=== PATIENT | male | born 1940 | race Caucasian/White ===

== ENCOUNTER 2021-09-01 09:06 | Inpatient (IN) ==
[2021-09-01] MEDS ORDERED: PANTOPRAZOLE INJ 80 MG in SODIUM CHLORIDE 0.9% 100 ML IV STA (10:17)
[2021-09-01] MEDS ORDERED: SODIUM CHLORIDE 0.9% 1,000 ML IV STA (10:17)
[2021-09-01 10:47] LABS: Basophils % 0.3 % (0.0-0.8); Hematocrit 44.5 VOL% (42.0-52.0); Hemoglobin 15.2 GM/DL (14.0-18.0); Immature Granulocytes % 6.6 %; Immature Granulocytes Absolute 0.45 #; Lymphocytes # 0.3 10*3/uL (1.4-4.0); Mean Corpuscular HGB Conc 34.2 GM/DL (32-36); Mean Corpuscular Volume 99.3 FL (87-102); Mean Platelet Volume 11.5 FL (9.6-12.0); Monocytes % 18.9 % (1.7-12.7); Neutrophils % 70.2 % (38.7-73.9); Red Blood Count 4.48 MC/CUMM (3.8-5.5); Red Cell Distribution Width 14.8 % (9.3-17.3); White Blood Count 6.8 T/CUMM (4-12)
[2021-09-01 10:49] LABS: Platelet Count 119 T/CUMM (130-400)
[2021-09-01 10:59] LABS: INR 1.2; PT Patient Result 13.3 SECS (10.5-12.0)
[2021-09-01 11:12] LABS: Bilirubin,Total 1.4 MG/DL (0.20-1.00); Calcium 8.7 MG/DL (8.5-10.1); Osmolality,Calculated 295.4 MOS/KG (273-304); Potassium 4.1 MMOL/L (3.5-5.1); Total Protein 5.9 G/DL (6.4-8.2)
[2021-09-01 11:26] LABS: Anisocytosis 1+; Band Neutrophils 23 % (0-10); Lymphocytes 1 % (20-55); Platelet Estimate Adequate; Segmented Neutrophils 55 % (50-85); Total Cells Counted 100
[2021-09-01 11:27] LABS: Burr Cells Few; Macrocytosis 1+
[2021-09-01] MEDS ORDERED: cefTRIAXone 1,000 MG in SODIUM CHLORIDE 0.9% 100 ML IV STA (11:55)
[2021-09-01] MEDS ORDERED: AZITHROMYCIN INJ 500 MG in SODIUM CHLORIDE 0.9% 250 ML IV STA (11:56)
[2021-09-01] MEDS ORDERED: DEXTROSE 10% 25 GM/250 ML BAG IV PRN (12:42)
[2021-09-01] MEDS ORDERED: ACETAMINOPHEN 325 MG TABLET PO PRN (12:42)
[2021-09-01] MEDS ORDERED: ONDANSETRON 4 MG/2 ML VIAL IV PRN (12:42)
[2021-09-01] MEDS ORDERED: GLUCAGON 1 MG VIAL IM PRN (12:42)
[2021-09-01 13:44] LABS: Ferritin 1402.4 ng/mL (26-388)
[2021-09-01] MEDS ORDERED: REMDESIVIR 200 MG in SODIUM CHLORIDE 0.9% 210 ML IV ONE (13:45)
[2021-09-01] MEDS: DEXAMETHASONE 4 MG/1 ML VIAL IV SCH (14:25)
[2021-09-01] MEDS: SODIUM CHLORIDE 0.9% 1,000 ML IV SCH (14:25)
[2021-09-01] MEDS: PANTOPRAZOLE INJ 200 MG in SODIUM CHLORIDE 0.9% 250 ML IV SCH (14:26)
[2021-09-01] MEDS ORDERED: hydrALAZINE 20 MG/1 ML VIAL IV PRN (15:28)
[2021-09-01] MEDS: guaiFENesin/DM ER 600-30 MG TABLET PO SCH (21:56)
[2021-09-01] MEDS: ASCORBIC ACID 500 MG TABLET PO SCH (21:56)
[2021-09-01 23:17] LABS: Hematocrit 29.1 VOL% (42.0-52.0)
[2021-09-01 23:24] LABS: Hemoglobin 9.4 GM/DL (14.0-18.0)
[2021-09-02] MEDS: SODIUM CHLORIDE 0.9% 1,000 ML IV SCH ×2 (02:47→16:26)
[2021-09-02 05:56] LABS: Hemoglobin 9.3 GM/DL (14.0-18.0)
[2021-09-02 05:59] LABS: Basophils % 0.3 % (0.0-0.8); Hematocrit 29.3 VOL% (42.0-52.0); Hemoglobin 9.6 GM/DL (14.0-18.0); Immature Granulocytes % 8.7 %; Immature Granulocytes Absolute 0.67 #; Lymphocytes # 0.4 10*3/uL (1.4-4.0); Lymphocytes % 5.6 % (21.2-54.2); Mean Corpuscular HGB Conc 32.8 GM/DL (32-36); Mean Corpuscular Volume 103.2 FL (87-102); Mean Platelet Volume 12.1 FL (9.6-12.0); Monocytes % 12.2 % (1.7-12.7); Neutrophils % 73.2 % (38.7-73.9); Platelet Count 150 T/CUMM (130-400); Red Blood Count 2.84 MC/CUMM (3.8-5.5); Red Cell Distribution Width 14.6 % (9.3-17.3); White Blood Count 7.7 T/CUMM (4-12)
[2021-09-02 06:23] LABS: Band Neutrophils 1 % (0-10); Hypochromia 1+; Lymphocytes 3 % (20-55); Microcytosis 1+; Nucleated Red Blood Cells 1 (0-5); Platelet Estimate Adequate; Segmented Neutrophils 77 % (50-85); Total Cells Counted 100
[2021-09-02 06:30] LABS: Ferritin 1275.8 ng/mL (26-388)
[2021-09-02 06:33] LABS: Albumin 1.7 G/DL (3.4-5.0); Bilirubin,Total 0.6 MG/DL (0.20-1.00); Calcium 8.1 MG/DL (8.5-10.1); Osmolality,Calculated 292.4 MOS/KG (273-304); Potassium 4.2 MMOL/L (3.5-5.1); Total Protein 5.1 G/DL (6.4-8.2)
[2021-09-02] MEDS: PANTOPRAZOLE INJ 200 MG in SODIUM CHLORIDE 0.9% 250 ML IV SCH (10:39)
[2021-09-02] MEDS: AZITHROMYCIN 250 MG TABLET PO SCH (10:40)
[2021-09-02] MEDS: ZINC GLUCONATE 50 MG TABLET PO SCH (10:40)
[2021-09-02] MEDS: CETIRIZINE 10 MG TABLET PO SCH (10:40)
[2021-09-02] MEDS: guaiFENesin/DM ER 600-30 MG TABLET PO SCH ×2 (10:40→21:34)
[2021-09-02] MEDS: ASCORBIC ACID 500 MG TABLET PO SCH ×2 (10:40→21:33)
[2021-09-02] MEDS: CHOLECALCIFEROL 1,000 UNIT TABLET PO SCH (10:40)
[2021-09-02] MEDS: DEXAMETHASONE 4 MG/1 ML VIAL IV SCH (10:42)
[2021-09-02] MEDS: REMDESIVIR 100 MG in SODIUM CHLORIDE 0.9% 100 ML IV SCH (11:31)
[2021-09-02] MEDS: ZALEPLON 5 MG CAPSULE PO SCH (21:34)
[2021-09-02] MEDS: PANTOPRAZOLE 40 MG VIAL IV SCH (21:37)
[2021-09-02] MEDS: carvediloL 12.5 MG TABLET PO SCH (22:17)
[2021-09-03] MEDS: SODIUM CHLORIDE 0.9% 1,000 ML IV SCH ×2 (04:01→17:41)
[2021-09-03 07:26] LABS: Ferritin 1171.5 ng/mL (26-388)
[2021-09-03] MEDS: CYANOCOBALAMIN 100 MCG TABLET PO SCH (10:16)
[2021-09-03] MEDS: AZITHROMYCIN 250 MG TABLET PO SCH (10:16)
[2021-09-03] MEDS: VALSARTAN 160 MG TABLET PO SCH (10:16)
[2021-09-03] MEDS: TAMSULOSIN 0.4 MG CAPSULE PO SCH (10:16)
[2021-09-03] MEDS: allopurinoL 300 MG TABLET PO SCH (10:16)
[2021-09-03] MEDS: guaiFENesin/DM ER 600-30 MG TABLET PO SCH ×2 (10:16→21:35)
[2021-09-03] MEDS: CHOLECALCIFEROL 1,000 UNIT TABLET PO SCH (10:16)
[2021-09-03] MEDS: CETIRIZINE 10 MG TABLET PO SCH (10:17)
[2021-09-03] MEDS: ASCORBIC ACID 500 MG TABLET PO SCH ×2 (10:17→21:35)
[2021-09-03] MEDS: SPIRONOLACTONE 50 MG TABLET PO SCH (10:17)
[2021-09-03] MEDS: MAGNESIUM CHLORIDE 64 MG TABLET PO SCH (10:17)
[2021-09-03] MEDS: carvediloL 12.5 MG TABLET PO SCH ×2 (10:17→21:35)
[2021-09-03] MEDS: ZINC GLUCONATE 50 MG TABLET PO SCH (10:18)
[2021-09-03] MEDS: REMDESIVIR 100 MG in SODIUM CHLORIDE 0.9% 100 ML IV SCH (10:27)
[2021-09-03] MEDS: DEXAMETHASONE 4 MG/1 ML VIAL IV SCH (10:32)
[2021-09-03] MEDS: PANTOPRAZOLE 40 MG VIAL IV SCH ×2 (10:32→21:42)
[2021-09-03] MEDS: ATORVASTATIN 40 MG TABLET PO SCH (21:35)
[2021-09-03] MEDS: ZALEPLON 5 MG CAPSULE PO SCH (21:35)
[2021-09-04 05:41] LABS: Basophils % 0.1 % (0.0-0.8); Eosinophils % 0.1 % (0.00-10.9); Hematocrit 28.7 VOL% (42.0-52.0); Hemoglobin 9.2 GM/DL (14.0-18.0); Immature Granulocytes % 7.4 %; Immature Granulocytes Absolute 0.78 #; Lymphocytes # 0.6 10*3/uL (1.4-4.0); Lymphocytes % 5.7 % (21.2-54.2); Mean Corpuscular HGB Conc 32.1 GM/DL (32-36); Mean Corpuscular Volume 101.1 FL (87-102); Mean Platelet Volume 11.6 FL (9.6-12.0); Monocytes % 11.9 % (1.7-12.7); Neutrophils % 74.8 % (38.7-73.9); Platelet Count 150 T/CUMM (130-400); Red Blood Count 2.84 MC/CUMM (3.8-5.5); Red Cell Distribution Width 14.8 % (9.3-17.3); White Blood Count 10.6 T/CUMM (4-12)
[2021-09-04 06:02] LABS: Band Neutrophils 1 % (0-10); Hypochromia 1+; Lymphocytes 6 % (20-55); Microcytosis 1+; Platelet Estimate Adequate; Segmented Neutrophils 80 % (50-85); Total Cells Counted 100
[2021-09-04 06:03] LABS: Calcium 7.7 MG/DL (8.5-10.1); Osmolality,Calculated 292.8 MOS/KG (273-304); Potassium 4.2 MMOL/L (3.5-5.1)
[2021-09-04 06:08] LABS: Ferritin 930.1 ng/mL (26-388)
[2021-09-04] MEDS: SODIUM CHLORIDE 0.9% 1,000 ML IV SCH ×2 (06:30→22:15)
[2021-09-04] MEDS: guaiFENesin/DM ER 600-30 MG TABLET PO SCH ×2 (08:44→22:32)
[2021-09-04] MEDS: CHOLECALCIFEROL 1,000 UNIT TABLET PO SCH (08:45)
[2021-09-04] MEDS: allopurinoL 300 MG TABLET PO SCH (08:45)
[2021-09-04] MEDS: TAMSULOSIN 0.4 MG CAPSULE PO SCH (08:45)
[2021-09-04] MEDS: AZITHROMYCIN 250 MG TABLET PO SCH (08:45)
[2021-09-04] MEDS: ZINC GLUCONATE 50 MG TABLET PO SCH (08:45)
[2021-09-04] MEDS: VALSARTAN 160 MG TABLET PO SCH (08:45)
[2021-09-04] MEDS: CYANOCOBALAMIN 100 MCG TABLET PO SCH (08:45)
[2021-09-04] MEDS: SPIRONOLACTONE 50 MG TABLET PO SCH (08:45)
[2021-09-04] MEDS: ASCORBIC ACID 500 MG TABLET PO SCH ×2 (08:45→22:42)
[2021-09-04] MEDS: CETIRIZINE 10 MG TABLET PO SCH (08:45)
[2021-09-04] MEDS: carvediloL 12.5 MG TABLET PO SCH ×2 (08:45→22:32)
[2021-09-04] MEDS: MAGNESIUM CHLORIDE 64 MG TABLET PO SCH (08:45)
[2021-09-04] MEDS: REMDESIVIR 100 MG in SODIUM CHLORIDE 0.9% 100 ML IV SCH (08:46)
[2021-09-04] MEDS: PANTOPRAZOLE 40 MG VIAL IV SCH ×2 (08:46→22:35)
[2021-09-04] MEDS: DEXAMETHASONE 4 MG/1 ML VIAL IV SCH (08:46)
[2021-09-04] MEDS: POLYETHYLENE GLYCOL POWDER 17 GM PACK PO SCH (15:05)
[2021-09-04] MEDS: BACITRACIN OINT 0.9 GM PACK TOP SCH (15:05)
[2021-09-04] MEDS: ATORVASTATIN 40 MG TABLET PO SCH (22:32)
[2021-09-04] MEDS: ZALEPLON 5 MG CAPSULE PO SCH (22:32)
[2021-09-05 06:09] LABS: Basophils % 0.2 % (0.0-0.8); Eosinophils % 0.2 % (0.00-10.9); Hematocrit 29.6 VOL% (42.0-52.0); Hemoglobin 9.8 GM/DL (14.0-18.0); Immature Granulocytes % 7.2 %; Immature Granulocytes Absolute 0.86 #; Lymphocytes # 0.6 10*3/uL (1.4-4.0); Lymphocytes % 5.4 % (21.2-54.2); Mean Corpuscular HGB Conc 33.1 GM/DL (32-36); Mean Corpuscular Volume 102.1 FL (87-102); Mean Platelet Volume 12.2 FL (9.6-12.0); Platelet Count 174 T/CUMM (130-400); Red Cell Distribution Width 14.9 % (9.3-17.3); White Blood Count 11.9 T/CUMM (4-12)
[2021-09-05 06:15] LABS: Calcium 7.9 MG/DL (8.5-10.1); Osmolality,Calculated 286.4 MOS/KG (273-304); Potassium 4.4 MMOL/L (3.5-5.1)
[2021-09-05 06:17] LABS: Ferritin 825.5 ng/mL (26-388)
[2021-09-05 06:31] LABS: Band Neutrophils 2 % (0-10); Eosinophils 1 % (0-10); Hypochromia 1+; Lymphocytes 5 % (20-55); Microcytosis 1+; Platelet Estimate Adequate; Segmented Neutrophils 83 % (50-85); Total Cells Counted 100
[2021-09-05] MEDS: REMDESIVIR 100 MG in SODIUM CHLORIDE 0.9% 100 ML IV SCH (09:41)
[2021-09-05] MEDS: DEXAMETHASONE 4 MG/1 ML VIAL IV SCH (09:42)
[2021-09-05] MEDS: POLYETHYLENE GLYCOL POWDER 17 GM PACK PO SCH (09:42)
[2021-09-05] MEDS: TAMSULOSIN 0.4 MG CAPSULE PO SCH (09:42)
[2021-09-05] MEDS: PANTOPRAZOLE 40 MG VIAL IV SCH ×2 (09:42→22:09)
[2021-09-05] MEDS: guaiFENesin/DM ER 600-30 MG TABLET PO SCH ×2 (09:42→22:08)
[2021-09-05] MEDS: BACITRACIN OINT 0.9 GM PACK TOP SCH (09:42)
[2021-09-05] MEDS: AZITHROMYCIN 250 MG TABLET PO SCH (09:42)
[2021-09-05] MEDS: allopurinoL 300 MG TABLET PO SCH (09:43)
[2021-09-05] MEDS: ASCORBIC ACID 500 MG TABLET PO SCH ×2 (09:43→22:08)
[2021-09-05] MEDS: VALSARTAN 160 MG TABLET PO SCH (09:43)
[2021-09-05] MEDS: MAGNESIUM CHLORIDE 64 MG TABLET PO SCH (09:43)
[2021-09-05] MEDS: ZINC GLUCONATE 50 MG TABLET PO SCH (09:43)
[2021-09-05] MEDS: SPIRONOLACTONE 50 MG TABLET PO SCH (09:43)
[2021-09-05] MEDS: CYANOCOBALAMIN 100 MCG TABLET PO SCH (09:43)
[2021-09-05] MEDS: CETIRIZINE 10 MG TABLET PO SCH (09:43)
[2021-09-05] MEDS: carvediloL 12.5 MG TABLET PO SCH ×2 (09:43→22:08)
[2021-09-05] MEDS: CHOLECALCIFEROL 1,000 UNIT TABLET PO SCH (10:29)
[2021-09-05] MEDS: SODIUM CHLORIDE 0.9% 1,000 ML IV SCH (11:35)
[2021-09-05] MEDS: ZALEPLON 5 MG CAPSULE PO SCH (22:08)
[2021-09-05] MEDS: ATORVASTATIN 40 MG TABLET PO SCH (22:09)
[2021-09-06] MEDS: SODIUM CHLORIDE 0.9% 1,000 ML IV SCH (00:18)
[2021-09-06 05:49] LABS: Basophils % 0.2 % (0.0-0.8); Eosinophils % 0.1 % (0.00-10.9); Hematocrit 32.6 VOL% (42.0-52.0); Hemoglobin 10.5 GM/DL (14.0-18.0); Immature Granulocytes % 6.1 %; Immature Granulocytes Absolute 0.96 #; Lymphocytes # 0.8 10*3/uL (1.4-4.0); Lymphocytes % 4.9 % (21.2-54.2); Mean Corpuscular HGB Conc 32.2 GM/DL (32-36); Mean Corpuscular Volume 101.2 FL (87-102); Mean Platelet Volume 11.9 FL (9.6-12.0); Monocytes % 9.5 % (1.7-12.7); Neutrophils % 79.2 % (38.7-73.9); Platelet Count 157 T/CUMM (130-400); Red Blood Count 3.22 MC/CUMM (3.8-5.5); Red Cell Distribution Width 14.7 % (9.3-17.3); White Blood Count 15.8 T/CUMM (4-12)
[2021-09-06 06:09] LABS: Osmolality,Calculated 279.8 MOS/KG (273-304); Potassium 5.1 MMOL/L (3.5-5.1)
[2021-09-06 06:13] LABS: Ferritin 666.5 ng/mL (26-388)
[2021-09-06 06:14] LABS: Band Neutrophils 1 % (0-10); Lymphocytes 7 % (20-55); Segmented Neutrophils 86 % (50-85); Total Cells Counted 100
[2021-09-06 06:15] LABS: Acanthocytes Few; Hypochromia Slight; Microcytosis 1+; Ovalocytes Slight; Platelet Estimate Adequate
[2021-09-06] MEDS: guaiFENesin/DM ER 600-30 MG TABLET PO SCH ×2 (08:35→21:02)
[2021-09-06] MEDS: carvediloL 12.5 MG TABLET PO SCH ×2 (08:35→21:02)
[2021-09-06] MEDS: ZINC GLUCONATE 50 MG TABLET PO SCH (08:35)
[2021-09-06] MEDS: ASCORBIC ACID 500 MG TABLET PO SCH ×2 (08:36→21:02)
[2021-09-06] MEDS: CETIRIZINE 10 MG TABLET PO SCH (08:36)
[2021-09-06] MEDS: BACITRACIN OINT 0.9 GM PACK TOP SCH (08:36)
[2021-09-06] MEDS: TAMSULOSIN 0.4 MG CAPSULE PO SCH (08:36)
[2021-09-06] MEDS: allopurinoL 300 MG TABLET PO SCH (08:36)
[2021-09-06] MEDS: CYANOCOBALAMIN 100 MCG TABLET PO SCH (08:36)
[2021-09-06] MEDS: VALSARTAN 160 MG TABLET PO SCH (08:36)
[2021-09-06] MEDS: SPIRONOLACTONE 50 MG TABLET PO SCH (08:36)
[2021-09-06] MEDS: PANTOPRAZOLE 40 MG VIAL IV SCH ×2 (08:48→21:02)
[2021-09-06] MEDS: DEXAMETHASONE 4 MG/1 ML VIAL IV SCH (08:50)
[2021-09-06] MEDS: POLYETHYLENE GLYCOL POWDER 17 GM PACK PO SCH (08:50)
[2021-09-06] MEDS: MAGNESIUM CHLORIDE 64 MG TABLET PO SCH (08:51)
[2021-09-06] MEDS ORDERED: AZITHROMYCIN 250 MG TABLET PO SCH (10:30)
[2021-09-06] MEDS: CHOLECALCIFEROL 1,000 UNIT TABLET PO SCH (11:18)
[2021-09-06] MEDS: CEFDINIR 300 MG CAPSULE PO SCH ×2 (12:22→21:02)
[2021-09-06] MEDS ORDERED: TUBERCULIN SKIN TEST 0.1 ML SYRINGE INTRADERM ONE (13:00)
[2021-09-06] MEDS ORDERED: AZITHROMYCIN 250 MG TABLET PO ONE (13:00)
[2021-09-06] MEDS: ZALEPLON 5 MG CAPSULE PO SCH (21:02)
[2021-09-06] MEDS: ATORVASTATIN 40 MG TABLET PO SCH (21:02)
[2021-09-07] MEDS: SODIUM CHLORIDE 0.9% 1,000 ML IV SCH ×2 (00:13→13:43)
[2021-09-07 05:47] LABS: Ferritin 601.6 ng/mL (26-388)
[2021-09-07] MEDS ORDERED: AZITHROMYCIN 250 MG TABLET PO SCH (09:00)
[2021-09-07] MEDS: POLYETHYLENE GLYCOL POWDER 17 GM PACK PO SCH (10:47)
[2021-09-07] MEDS: VALSARTAN 160 MG TABLET PO SCH (11:03)
[2021-09-07] MEDS: guaiFENesin/DM ER 600-30 MG TABLET PO SCH (11:03)
[2021-09-07] MEDS: CETIRIZINE 10 MG TABLET PO SCH (11:04)
[2021-09-07] MEDS: allopurinoL 300 MG TABLET PO SCH (11:04)
[2021-09-07] MEDS: ASCORBIC ACID 500 MG TABLET PO SCH (11:04)
[2021-09-07] MEDS: BACITRACIN OINT 0.9 GM PACK TOP SCH (11:04)
[2021-09-07] MEDS: CYANOCOBALAMIN 100 MCG TABLET PO SCH (11:04)
[2021-09-07] MEDS: TAMSULOSIN 0.4 MG CAPSULE PO SCH (11:04)
[2021-09-07] MEDS: ZINC GLUCONATE 50 MG TABLET PO SCH (11:04)
[2021-09-07] MEDS: carvediloL 12.5 MG TABLET PO SCH (11:04)
[2021-09-07] MEDS: MAGNESIUM CHLORIDE 64 MG TABLET PO SCH (11:05)
[2021-09-07] MEDS: SPIRONOLACTONE 50 MG TABLET PO SCH (11:05)
[2021-09-07] MEDS: CHOLECALCIFEROL 1,000 UNIT TABLET PO SCH (11:08)
[2021-09-07] MEDS: DEXAMETHASONE 4 MG/1 ML VIAL IV SCH (11:11)
[2021-09-07] MEDS: PANTOPRAZOLE 40 MG VIAL IV SCH (11:15)
[2021-09-07 11:55] VITALS: BP 127/64
[2021-09-07] MEDS: CEFDINIR 300 MG CAPSULE PO SCH (13:44)
== END 2021-09-07 13:04 | disposition swing bed (61) | DRG 177 ==
LOC: EDUNIT# → EDBD → N.ED 09:06 → N.5E 12:42 → SUATTDRO 12:42 → N.5E 17:00
PROVIDERS: ADMIT Internal Medicine; ATTEND Internal Medicine

== ENCOUNTER 2021-12-21 13:54 | Inpatient (IN) ==
[2021-12-21 14:38] LABS: Basophils % 0.5 % (0.0-0.8); Eosinophils % 0.1 % (0.00-10.9); Hematocrit 36.8 VOL% (42.0-52.0); Hemoglobin 11.1 GM/DL (14.0-18.0); Immature Granulocytes % 1.1 %; Immature Granulocytes Absolute 0.09 #; Lymphocytes # 0.6 10*3/uL (1.4-4.0); Lymphocytes % 7.3 % (21.2-54.2); Mean Corpuscular HGB Conc 30.2 GM/DL (32-36); Mean Corpuscular Volume 106.7 FL (87-102); Mean Platelet Volume 12.2 FL (9.6-12.0); Monocytes # 0.8 10*3/uL (0.11-0.8); Monocytes % 9.4 % (1.7-12.7); Neutrophils % 81.6 % (38.7-73.9); Platelet Count 187 T/CUMM (130-400); Red Blood Count 3.45 MC/CUMM (3.8-5.5); White Blood Count 8.2 T/CUMM (4-12)
[2021-12-21 14:46] LABS: Albumin 2.4 G/DL (3.4-5.0); Bilirubin,Total 1.2 MG/DL (0.20-1.00); Calcium 9.1 MG/DL (8.5-10.1); Osmolality,Calculated 279.4 MOS/KG (273-304); Potassium 3.7 MMOL/L (3.5-5.1); Total Protein 5.5 G/DL (6.4-8.2)
[2021-12-21] MEDS ORDERED: ONDANSETRON 4 MG/2 ML VIAL ONE (17:14)
[2021-12-21 17:20] LABS: INR 1.2; PT Patient Result 12.7 SECS (10.5-12.0); Partial Thromboplastin Time 38.6 SECS (23.8-32.1)
[2021-12-21] MEDS ORDERED: ONDANSETRON 4 MG/2 ML VIAL IV PRN (17:36)
[2021-12-21] MEDS ORDERED: GLUCAGON 1 MG VIAL IM PRN (17:36)
[2021-12-21] MEDS ORDERED: hydrALAZINE 20 MG/1 ML VIAL IV PRN (17:36)
[2021-12-21] MEDS ORDERED: DEXTROSE 10% 250 ML BAG IV PRN (17:40)
[2021-12-21] MEDS ORDERED: HYDROmorphone 1 MG/1 ML SYRINGE IV STA (17:51)
[2021-12-21 18:27] LABS: Mucus,Urine Many /LPF (Occasional); RBC,Urine 5702 /HPF (0-4); Urine Appearance Cloudy (Clear); Urine Color Red (Yellow); Urine Specific Gravity >= 1.030 (1.001-1.035); Urine pH 6.5 (4.5-8.0)
[2021-12-21 18:28] LABS: Bilirubin,Urine Moderate mg/dL (Negative); Blood, Urine Large mg/dL (Negative); Glucose,Urine (UA) 100 mg/dL (Negative); Ketones,Urine 40 mg/dL (Negative); Nitrite,Urine Negative (Negative); Protein,Urine >=300 mg/dL (Negative)
[2021-12-21 20:09] LABS: Hematocrit 34.1 VOL% (42.0-52.0); Hemoglobin 10.3 GM/DL (14.0-18.0)
[2021-12-21] MEDS: ZALEPLON 5 MG CAPSULE PO SCH (21:17)
[2021-12-21] MEDS: SODIUM CHLORIDE 0.9% 1,000 ML IV SCH (21:17)
[2021-12-21] MEDS: TAMSULOSIN 0.4 MG CAPSULE PO SCH (21:17)
[2021-12-22 02:44] LABS: Basophils # 0.1 10*3/uL (0.0-0.2); Basophils % 0.6 % (0.0-0.8); Eosinophils # 0.1 10*3/uL (0.0-0.87); Eosinophils % 1.5 % (0.00-10.9); Hematocrit 33.3 VOL% (42.0-52.0); Immature Granulocytes % 1.2 %; Immature Granulocytes Absolute 0.09 #; Lymphocytes # 0.7 10*3/uL (1.4-4.0); Lymphocytes % 8.8 % (21.2-54.2); Mean Corpuscular Volume 107.1 FL (87-102); Mean Platelet Volume 12.2 FL (9.6-12.0); Monocytes # 0.9 10*3/uL (0.11-0.8); Monocytes % 11.5 % (1.7-12.7); Neutrophils % 76.4 % (38.7-73.9); Red Blood Count 3.11 MC/CUMM (3.8-5.5); White Blood Count 7.8 T/CUMM (4-12)
[2021-12-22 02:51] LABS: Albumin 2.1 G/DL (3.4-5.0); Bilirubin,Total 0.8 MG/DL (0.20-1.00); Calcium 8.4 MG/DL (8.5-10.1); Osmolality,Calculated 281.1 MOS/KG (273-304); Potassium 3.5 MMOL/L (3.5-5.1); Total Protein 4.8 G/DL (6.4-8.2)
[2021-12-22 02:55] LABS: Platelet Count 115 T/CUMM (130-400)
[2021-12-22 07:51] LABS: Hematocrit 33.7 VOL% (42.0-52.0); Hemoglobin 10.1 GM/DL (14.0-18.0)
[2021-12-22] MEDS ORDERED: PANTOPRAZOLE 40 MG TABLET PO SCH (09:00)
[2021-12-22] MEDS: DUTASTERIDE 0.5 MG CAPSULE PO SCH (09:10)
[2021-12-22] MEDS: ATORVASTATIN 40 MG TABLET PO SCH (09:10)
[2021-12-22] MEDS: CYANOCOBALAMIN 100 MCG TABLET PO SCH (09:10)
[2021-12-22] MEDS: SODIUM CHLORIDE 0.9% 1,000 ML IV SCH (10:45)
[2021-12-22 16:03] LABS: Hematocrit 32.6 VOL% (42.0-52.0); Hemoglobin 9.5 GM/DL (14.0-18.0)
[2021-12-22] MEDS: TAMSULOSIN 0.4 MG CAPSULE PO SCH (21:18)
[2021-12-22] MEDS: ZALEPLON 5 MG CAPSULE PO SCH (21:18)
[2021-12-23] MEDS: SODIUM CHLORIDE 0.9% 1,000 ML IV SCH (00:35)
[2021-12-23 05:38] LABS: Basophils % 0.4 % (0.0-0.8); Eosinophils # 0.1 10*3/uL (0.0-0.87); Eosinophils % 1.2 % (0.00-10.9); Hematocrit 33.4 VOL% (42.0-52.0); Hemoglobin 9.8 GM/DL (14.0-18.0); Immature Granulocytes % 0.7 %; Immature Granulocytes Absolute 0.06 #; Lymphocytes # 0.7 10*3/uL (1.4-4.0); Mean Corpuscular HGB Conc 29.3 GM/DL (32-36); Mean Corpuscular Volume 107.4 FL (87-102); Mean Platelet Volume 12.4 FL (9.6-12.0); Monocytes % 10.9 % (1.7-12.7); Neutrophils % 78.8 % (38.7-73.9); Platelet Count 109 T/CUMM (130-400); Red Blood Count 3.11 MC/CUMM (3.8-5.5); Red Cell Distribution Width 14.1 % (9.3-17.3); White Blood Count 9.2 T/CUMM (4-12)
[2021-12-23 05:55] LABS: Calcium 8.3 MG/DL (8.5-10.1); Osmolality,Calculated 284.8 MOS/KG (273-304); Potassium 3.2 MMOL/L (3.5-5.1)
[2021-12-23] MEDS ORDERED: POTASSIUM CHLORIDE 20 MEQ TABLET PO ONE (08:00)
[2021-12-23] MEDS: DUTASTERIDE 0.5 MG CAPSULE PO SCH (08:51)
[2021-12-23] MEDS: CYANOCOBALAMIN 100 MCG TABLET PO SCH (08:51)
[2021-12-23] MEDS: PANTOPRAZOLE 40 MG TABLET PO SCH ×2 (08:52→20:29)
[2021-12-23] MEDS: ATORVASTATIN 40 MG TABLET PO SCH (08:52)
[2021-12-23] MEDS ORDERED: DIGOXIN 0.25 MG TABLET PO SCH (09:00)
[2021-12-23] MEDS: DIGOXIN 0.25 MG TABLET PO SCH (13:24)
[2021-12-23] MEDS: cefTRIAXone 1,000 MG in SODIUM CHLORIDE 0.9% 100 ML IV SCH (13:25)
[2021-12-23] MEDS: TAMSULOSIN 0.4 MG CAPSULE PO SCH (20:29)
[2021-12-23] MEDS: ZALEPLON 5 MG CAPSULE PO SCH (20:29)
[2021-12-24] MEDS: SODIUM CHLORIDE 0.9% 1,000 ML IV SCH ×2 (04:06)
[2021-12-24 05:17] LABS: Basophils # 0.1 10*3/uL (0.0-0.2); Eosinophils # 0.2 10*3/uL (0.0-0.87); Eosinophils % 2.7 % (0.00-10.9); Hematocrit 31.9 VOL% (42.0-52.0); Hemoglobin 9.3 GM/DL (14.0-18.0); Immature Granulocytes Absolute 0.06 #; Lymphocytes # 0.5 10*3/uL (1.4-4.0); Mean Corpuscular HGB Conc 29.2 GM/DL (32-36); Mean Corpuscular Volume 106.7 FL (87-102); Mean Platelet Volume 12.6 FL (9.6-12.0); Monocytes # 0.8 10*3/uL (0.11-0.8); Monocytes % 14.3 % (1.7-12.7); Platelet Count 110 T/CUMM (130-400); Red Blood Count 2.99 MC/CUMM (3.8-5.5); Red Cell Distribution Width 13.9 % (9.3-17.3)
[2021-12-24 05:20] LABS: White Blood Count 5.9 T/CUMM (4-12)
[2021-12-24 05:37] LABS: Calcium 8.2 MG/DL (8.5-10.1); Osmolality,Calculated 282.8 MOS/KG (273-304); Potassium 3.4 MMOL/L (3.5-5.1)
[2021-12-24] MEDS ORDERED: POTASSIUM CHLORIDE 20 MEQ TABLET PO ONE (07:25)
[2021-12-24] MEDS: CYANOCOBALAMIN 100 MCG TABLET PO SCH (09:31)
[2021-12-24] MEDS: DUTASTERIDE 0.5 MG CAPSULE PO SCH (09:31)
[2021-12-24] MEDS: ATORVASTATIN 40 MG TABLET PO SCH (09:31)
[2021-12-24] MEDS: PANTOPRAZOLE 40 MG TABLET PO SCH ×2 (09:49→20:40)
[2021-12-24] MEDS: cefTRIAXone 1,000 MG in SODIUM CHLORIDE 0.9% 100 ML IV SCH (10:00)
[2021-12-24] MEDS: FUROSEMIDE 40 MG/4 ML VIAL IV SCH (12:41)
[2021-12-24] MEDS: LEVOFLOXACIN INJ 500 MG/100 ML PREMIX IV SCH (12:53)
[2021-12-24] MEDS: ALBUTEROL/IPRATROPIUM 3 ML NEB RESP TX SCH ×2 (13:33→19:01)
[2021-12-24] MEDS: DIGOXIN 0.25 MG TABLET PO SCH (15:38)
[2021-12-24] MEDS: guaiFENesin/DM ER 600-30 MG TABLET PO SCH (20:40)
[2021-12-24] MEDS: ZALEPLON 5 MG CAPSULE PO SCH (20:40)
[2021-12-24] MEDS: TAMSULOSIN 0.4 MG CAPSULE PO SCH (20:40)
[2021-12-25] MEDS: ALBUTEROL/IPRATROPIUM 3 ML NEB RESP TX SCH ×4 (00:50→19:02)
[2021-12-25 05:03] LABS: Basophils # 0.1 10*3/uL (0.0-0.2); Basophils % 0.7 % (0.0-0.8); Eosinophils # 0.1 10*3/uL (0.0-0.87); Eosinophils % 1.7 % (0.00-10.9); Hematocrit 34.6 VOL% (42.0-52.0); Hemoglobin 10.2 GM/DL (14.0-18.0); Immature Granulocytes % 1.1 %; Immature Granulocytes Absolute 0.08 #; Lymphocytes # 0.5 10*3/uL (1.4-4.0); Lymphocytes % 7.5 % (21.2-54.2); Mean Corpuscular HGB Conc 29.5 GM/DL (32-36); Mean Corpuscular Volume 106.1 FL (87-102); Mean Platelet Volume 12.2 FL (9.6-12.0); Monocytes # 0.9 10*3/uL (0.11-0.8); Platelet Count 100 T/CUMM (130-400); Red Blood Count 3.26 MC/CUMM (3.8-5.5); White Blood Count 7.1 T/CUMM (4-12)
[2021-12-25 05:20] LABS: % Iron Saturation 14.4 % (18-50); Calcium 8.3 MG/DL (8.5-10.1); Ferritin 195.7 ng/mL (26-388); Osmolality,Calculated 284.8 MOS/KG (273-304); Potassium 3.2 MMOL/L (3.5-5.1)
[2021-12-25] MEDS: ATORVASTATIN 40 MG TABLET PO SCH (08:09)
[2021-12-25] MEDS: guaiFENesin/DM ER 600-30 MG TABLET PO SCH ×2 (08:09→20:48)
[2021-12-25] MEDS: CYANOCOBALAMIN 100 MCG TABLET PO SCH (08:09)
[2021-12-25] MEDS: DUTASTERIDE 0.5 MG CAPSULE PO SCH (08:09)
[2021-12-25] MEDS: PANTOPRAZOLE 40 MG TABLET PO SCH ×2 (08:09→20:48)
[2021-12-25] MEDS: FUROSEMIDE 40 MG/4 ML VIAL IV SCH (08:10)
[2021-12-25] MEDS: POTASSIUM CHLORIDE 20 MEQ TABLET PO SCH ×3 (10:17→15:46)
[2021-12-25] MEDS: LEVOFLOXACIN INJ 500 MG/100 ML PREMIX IV SCH (10:17)
[2021-12-25] MEDS: DIGOXIN 0.25 MG TABLET PO SCH (13:40)
[2021-12-25] MEDS ORDERED: POTASSIUM CHLORIDE 20 MEQ TABLET PO SCH (16:00)
[2021-12-25] MEDS: ZALEPLON 5 MG CAPSULE PO SCH (20:48)
[2021-12-25] MEDS: TAMSULOSIN 0.4 MG CAPSULE PO SCH (20:48)
[2021-12-26] MEDS: ALBUTEROL/IPRATROPIUM 3 ML NEB RESP TX SCH ×4 (00:34→19:37)
[2021-12-26 05:07] LABS: Basophils # 0.1 10*3/uL (0.0-0.2); Basophils % 0.6 % (0.0-0.8); Eosinophils # 0.1 10*3/uL (0.0-0.87); Eosinophils % 1.1 % (0.00-10.9); Hematocrit 33.4 VOL% (42.0-52.0); Hemoglobin 10.1 GM/DL (14.0-18.0); Immature Granulocytes % 1.2 %; Lymphocytes # 0.7 10*3/uL (1.4-4.0); Lymphocytes % 7.9 % (21.2-54.2); Mean Corpuscular HGB Conc 30.2 GM/DL (32-36); Mean Corpuscular Volume 104.7 FL (87-102); Mean Platelet Volume 12.7 FL (9.6-12.0); Monocytes # 1.2 10*3/uL (0.11-0.8); Monocytes % 14.1 % (1.7-12.7); Neutrophils % 75.1 % (38.7-73.9); Platelet Count 102 T/CUMM (130-400); Red Blood Count 3.19 MC/CUMM (3.8-5.5); Red Cell Distribution Width 13.9 % (9.3-17.3); White Blood Count 8.6 T/CUMM (4-12)
[2021-12-26 05:22] LABS: Calcium 8.3 MG/DL (8.5-10.1); Potassium 3.9 MMOL/L (3.5-5.1)
[2021-12-26] MEDS ORDERED: MAGNESIUM SULF RIDER 2 GM/50 ML PREMIX IV ONE (08:00)
[2021-12-26] MEDS: guaiFENesin/DM ER 600-30 MG TABLET PO SCH ×2 (08:14→21:32)
[2021-12-26] MEDS: PANTOPRAZOLE 40 MG TABLET PO SCH ×2 (08:14→21:32)
[2021-12-26] MEDS: CYANOCOBALAMIN 100 MCG TABLET PO SCH (08:14)
[2021-12-26] MEDS: ATORVASTATIN 40 MG TABLET PO SCH (08:15)
[2021-12-26] MEDS: DUTASTERIDE 0.5 MG CAPSULE PO SCH (08:15)
[2021-12-26] MEDS: FUROSEMIDE 40 MG/4 ML VIAL IV SCH (09:04)
[2021-12-26] MEDS: LEVOFLOXACIN INJ 500 MG/100 ML PREMIX IV SCH (10:01)
[2021-12-26] MEDS: DIGOXIN 0.25 MG TABLET PO SCH (12:20)
[2021-12-26] MEDS: TAMSULOSIN 0.4 MG CAPSULE PO SCH (21:31)
[2021-12-26] MEDS: ZALEPLON 5 MG CAPSULE PO SCH (21:31)
[2021-12-27] MEDS: ALBUTEROL/IPRATROPIUM 3 ML NEB RESP TX SCH ×4 (00:23→20:26)
[2021-12-27 05:38] LABS: Basophils % 0.9 % (0.0-0.8); Eosinophils # 0.2 10*3/uL (0.0-0.87); Eosinophils % 4.2 % (0.00-10.9); Hematocrit 32.9 VOL% (42.0-52.0); Hemoglobin 9.7 GM/DL (14.0-18.0); Immature Granulocytes % 1.8 %; Immature Granulocytes Absolute 0.08 #; Lymphocytes # 0.5 10*3/uL (1.4-4.0); Lymphocytes % 11.4 % (21.2-54.2); Mean Corpuscular HGB Conc 29.5 GM/DL (32-36); Mean Corpuscular Volume 106.5 FL (87-102); Mean Platelet Volume 12.4 FL (9.6-12.0); Monocytes # 0.8 10*3/uL (0.11-0.8); Neutrophils % 63.7 % (38.7-73.9); Platelet Count 96 T/CUMM (130-400); Red Blood Count 3.09 MC/CUMM (3.8-5.5); White Blood Count 4.6 T/CUMM (4-12)
[2021-12-27 05:58] LABS: Band Neutrophils 1 % (0-10); Eosinophils 3 % (0-10); Lymphocytes 12 % (20-55); Platelet Estimate Decreased; Total Cells Counted 100
[2021-12-27 06:04] LABS: Calcium 8.3 MG/DL (8.5-10.1); Osmolality,Calculated 279.3 MOS/KG (273-304); Potassium 3.9 MMOL/L (3.5-5.1)
[2021-12-27] MEDS: CYANOCOBALAMIN 100 MCG TABLET PO SCH (09:36)
[2021-12-27] MEDS: guaiFENesin/DM ER 600-30 MG TABLET PO SCH ×2 (09:36→20:58)
[2021-12-27] MEDS: ATORVASTATIN 40 MG TABLET PO SCH (09:36)
[2021-12-27] MEDS: DUTASTERIDE 0.5 MG CAPSULE PO SCH (09:36)
[2021-12-27] MEDS: PANTOPRAZOLE 40 MG TABLET PO SCH ×2 (09:36→20:57)
[2021-12-27] MEDS: FUROSEMIDE 40 MG/4 ML VIAL IV SCH (09:37)
[2021-12-27] MEDS ORDERED: BISACODYL 10 MG SUPP RECTAL ONE (11:09)
[2021-12-27] MEDS: POLYETHYLENE GLYCOL POWDER 17 GM PACK PO SCH (12:14)
[2021-12-27] MEDS: LEVOFLOXACIN INJ 500 MG/100 ML PREMIX IV SCH (12:14)
[2021-12-27] MEDS: DIGOXIN 0.25 MG TABLET PO SCH (13:41)
[2021-12-27] MEDS: TAMSULOSIN 0.4 MG CAPSULE PO SCH (20:57)
[2021-12-27] MEDS: ZALEPLON 5 MG CAPSULE PO SCH (20:58)
[2021-12-28] MEDS: ALBUTEROL/IPRATROPIUM 3 ML NEB RESP TX SCH ×4 (00:29→19:16)
[2021-12-28 05:29] LABS: Basophils # 0.1 10*3/uL (0.0-0.2); Basophils % 0.7 % (0.0-0.8); Eosinophils # 0.2 10*3/uL (0.0-0.87); Hematocrit 35.2 VOL% (42.0-52.0); Hemoglobin 10.5 GM/DL (14.0-18.0); Immature Granulocytes % 0.9 %; Immature Granulocytes Absolute 0.07 #; Lymphocytes # 0.6 10*3/uL (1.4-4.0); Lymphocytes % 7.1 % (21.2-54.2); Mean Corpuscular HGB Conc 29.8 GM/DL (32-36); Mean Corpuscular Volume 105.7 FL (87-102); Mean Platelet Volume 12.7 FL (9.6-12.0); Monocytes # 1.2 10*3/uL (0.11-0.8); Monocytes % 14.2 % (1.7-12.7); Neutrophils % 75.1 % (38.7-73.9); Platelet Count 104 T/CUMM (130-400); Red Blood Count 3.33 MC/CUMM (3.8-5.5); Red Cell Distribution Width 13.9 % (9.3-17.3); White Blood Count 8.2 T/CUMM (4-12)
[2021-12-28 05:46] LABS: Calcium 8.3 MG/DL (8.5-10.1); Osmolality,Calculated 275.5 MOS/KG (273-304); Potassium 3.5 MMOL/L (3.5-5.1)
[2021-12-28] MEDS: CYANOCOBALAMIN 100 MCG TABLET PO SCH (08:56)
[2021-12-28] MEDS: PANTOPRAZOLE 40 MG TABLET PO SCH ×2 (08:57→21:19)
[2021-12-28] MEDS: guaiFENesin/DM ER 600-30 MG TABLET PO SCH ×2 (08:57→21:19)
[2021-12-28] MEDS: DUTASTERIDE 0.5 MG CAPSULE PO SCH (08:57)
[2021-12-28] MEDS: ATORVASTATIN 40 MG TABLET PO SCH (08:57)
[2021-12-28] MEDS: FUROSEMIDE 40 MG/4 ML VIAL IV SCH (08:58)
[2021-12-28] MEDS: POLYETHYLENE GLYCOL POWDER 17 GM PACK PO SCH (08:58)
[2021-12-28] MEDS: LEVOFLOXACIN INJ 500 MG/100 ML PREMIX IV SCH (12:28)
[2021-12-28] MEDS: DIGOXIN 0.25 MG TABLET PO SCH (12:31)
[2021-12-28] MEDS ORDERED: BISACODYL 5 MG TABLET PO ONE (15:00)
[2021-12-28] MEDS ORDERED: ZINC OXIDE PASTE 113 GM TUBE TOP PRN (15:28)
[2021-12-28] MEDS ORDERED: POLYETHYLENE GLYCOL POWDER 255 GM BOTTLE PO ONE (18:00)
[2021-12-28] MEDS: ZALEPLON 5 MG CAPSULE PO SCH (21:19)
[2021-12-28] MEDS: TAMSULOSIN 0.4 MG CAPSULE PO SCH (21:19)
[2021-12-29] MEDS: ALBUTEROL/IPRATROPIUM 3 ML NEB RESP TX SCH ×3 (00:30→13:30)
[2021-12-29] MEDS ORDERED: POLYETHYLENE GLYCOL POWDER 255 GM BOTTLE PO ONE (05:00)
[2021-12-29] MEDS ORDERED: LACTATED RINGERS 1,000 ML IV SCH (08:00)
[2021-12-29] MEDS: ATORVASTATIN 40 MG TABLET PO SCH (10:13)
[2021-12-29] MEDS: PANTOPRAZOLE 40 MG TABLET PO SCH (10:13)
[2021-12-29] MEDS: guaiFENesin/DM ER 600-30 MG TABLET PO SCH (10:13)
[2021-12-29] MEDS: CYANOCOBALAMIN 100 MCG TABLET PO SCH (10:14)
[2021-12-29] MEDS: DUTASTERIDE 0.5 MG CAPSULE PO SCH (10:14)
[2021-12-29] MEDS ORDERED: FUROSEMIDE 40 MG TABLET PO SCH (11:00)
[2021-12-29] MEDS ORDERED: POTASSIUM CHLORIDE 20 MEQ TABLET PO ONE (11:30)
[2021-12-29] MEDS ORDERED: POTASSIUM BICARB EFFERVESCENT 20 MEQ TAB.EFF PO ONE (13:30)
[2021-12-29] MEDS: POLYETHYLENE GLYCOL POWDER 17 GM PACK PO SCH (13:30)
[2021-12-29] MEDS: DIGOXIN 0.25 MG TABLET PO SCH (14:50)
[2021-12-29] MEDS: LEVOFLOXACIN INJ 500 MG/100 ML PREMIX IV SCH (17:23)
[2021-12-29 17:31] VITALS: BP 107/48
== END 2021-12-29 18:43 | disposition home health service (06) | DRG 377 ==
LOC: EDUNIT# → N.ED 13:54 → SUATTDRO 17:36 → N.EDINP 17:36 → N.3E 18:53
PROVIDERS: ADMIT Family Medicine; ATTEND Internal Medicine